=== PATIENT | female | born 1990 | race Caucasian/White ===

== ENCOUNTER 2018-04-19 22:58 | Inpatient (IN) | payer OTHER ==
[2018-04-19] MEDS ORDERED: LIDOCAINE 1% (MPF) 30 ML INJ INJ (23:30)
[2018-04-19] MEDS ORDERED: OXYTOCIN 30 UNITS/LR 500 ML IV (23:30)
[2018-04-19] MEDS ORDERED: MISOPROSTOL 50 MCG CAPSULE PO (23:30)
[2018-04-19] MEDS ORDERED: MISOPROSTOL 50 MCG CAPSULE VAG (23:30)
[2018-04-19] MEDS ORDERED: METHYLERGONOVINE 0.2 MG INJ IM (23:30)
[2018-04-19] MEDS ORDERED: MISOPROSTOL 200 MCG TAB PR (23:30)
[2018-04-19] MEDS ORDERED: MISOPROSTOL 25 MCG CAPSULE VAG (23:30)
[2018-04-19] MEDS ORDERED: CARBOPROST 250 MCG INJ IM (23:30)
[2018-04-19 23:32] LABS: ADD MAN DIFF? NO
[2018-04-19 23:33] LABS: BASOPHILS % 0.2 % (0.0-2.0); EOSINOPHILS # 0.1 10^3/ul (0.0-0.5); EOSINOPHILS % 0.4 % (0.0-7.0); HEMATOCRIT 33.1 % (37.0-47.0); HEMOGLOBIN 11.4 g/dl (12.0-16.0); LYMPHOCYTES # 2.2 10^3/ul (0.8-2.9); LYMPHOCYTES % 10.3 % (15.0-51.0); MEAN CORPUSCULAR HEMOGLOBIN 30.6 pg (29.0-33.0); MEAN CORPUSCULAR HGB CONC 34.4 g/dl (32.0-37.0); MEAN PLATELET VOLUME 10.2 fl (7.4-10.4); MONOCYTE # 1.3 10^3/ul (0.3-0.9); NEUTROPHIL # 17.3 10^3/ul (1.6-7.5); NEUTROPHILS % 82.1 % (39.0-77.0); PLATELET COUNT 265 10^3/UL (140-415); RED BLOOD COUNT 3.72 10^6/ul (4.20-5.40); RED CELL DISTRIBUTION WIDTH 11.7 % (11.5-14.5)
[2018-04-19 23:33] LABS: WHITE BLOOD COUNT 21.1 10^3/ul (4.8-10.8)
[2018-04-19 23:53] LABS: INR 0.85; PROTIME 11.7 Sec (11.9-14.9); PT RATIO 0.9
[2018-04-19 23:54] LABS: PARTIAL THROMBOPLASTIN TIME 28.6 Sec (23.0-35.0)
[2018-04-20] MEDS ORDERED: MISOPROSTOL 200 MCG TAB PO
[2018-04-20 00:20] LABS: HEPATITIS B SURFACE ANTIGEN NEGATIVE (NEGATIVE)
[2018-04-20] MEDS: HYDROmorphONE 2 MG/ML SYG IV ×2 (00:34→05:52)
[2018-04-20] MEDS: OXYTOCIN 30 UNITS/LR 500 ML IV ×2 (00:36→04:46)
[2018-04-20] MEDS: CEFAZOLIN 2 GM/50 ML (PMX) 50 ML IVPB ×2 (00:36→07:32)
[2018-04-20] MEDS: MISOPROSTOL 200 MCG TAB VAG (00:37)
[2018-04-20] MEDS: MISOPROSTOL 200 MCG TAB PO (00:37)
[2018-04-20] MEDS ORDERED: MISOPROSTOL 200 MCG TAB VAG (04:30)
[2018-04-20] MEDS ORDERED: PRENATAL VITAMIN (05:47)
[2018-04-20 07:09] LABS: ADD MAN DIFF? NO
[2018-04-20 07:14] LABS: BASOPHIL # 0.1 10^3/ul (0.0-0.1); BASOPHILS % 0.3 % (0.0-2.0); EOSINOPHILS % 0.2 % (0.0-7.0); HEMATOCRIT 31.8 % (37.0-47.0); HEMOGLOBIN 10.7 g/dl (12.0-16.0); LYMPHOCYTES # 3.2 10^3/ul (0.8-2.9); LYMPHOCYTES % 17.9 % (15.0-51.0); MEAN CORPUSCULAR HEMOGLOBIN 30.2 pg (29.0-33.0); MEAN CORPUSCULAR HGB CONC 33.6 g/dl (32.0-37.0); MEAN CORPUSCULAR VOLUME 89.8 fl (82.0-101.0); MEAN PLATELET VOLUME 10.3 fl (7.4-10.4); MONOCYTES % 5.7 % (0.0-11.0); NEUTROPHIL # 13.5 10^3/ul (1.6-7.5); PLATELET COUNT 253 10^3/UL (140-415); RED BLOOD COUNT 3.54 10^6/ul (4.20-5.40); RED CELL DISTRIBUTION WIDTH 11.7 % (11.5-14.5)
[2018-04-20] MEDS: LACTATED RINGER'S 1,000 ML IV* (07:31)
[2018-04-20 16:44] LABS: RAPID PLASMA REAGIN NONREACTIVE (NR)
== END 2018-04-20 10:15 | disposition home or self-care (01) | DRG 779 ==
LOC: L-D 22:58
PROVIDERS: Obstetrics & Gynecology Gynecology
PROC: 10E0XZZ Delivery of Products of Conception, External Approach (ICD-10-PCS; principal; 2018-04-20)
PROC: 3E0P7VZ Introduction of Hormone into Female Reproductive, Via Natural or Artificial Opening (ICD-10-PCS; 2018-04-20)
DX: O02.1 Missed abortion (principal); O03.4 Incomplete spontaneous abortion without complication; Z87.440 Personal history of urinary (tract) infections
CPT/HCPCS: 59414; 76856; 85025; 85610; 85730; 86592; 87340; 88305; 88307